=== PATIENT | female | born 1980 | race African-American/Black ===

== ENCOUNTER 2024-07-07 10:24 | Outpatient (CLI) | payer MEDICARE, MEDICAID | END 2024-07-07 10:25 | disposition home or self-care (01) | LOC: CSHMRI 10:24 | PROVIDERS: ATTEND Nurse Practitioner Family | DX: M47.26 Other spondylosis with radiculopathy, lumbar region (principal); M48.061 Spinal stenosis, lumbar region without neurogenic claudication | CPT/HCPCS: 72148 ==